=== PATIENT | female | born 1975 | race Caucasian/White ===

== ENCOUNTER 2025-01-17 18:42 | Emergency (ER) | payer BC ==
[~2025-01-17] VITALS: Ht 170.2 cm; Wt 130.2 kg
[2025-01-17 19:58] VITALS: TEMP 98.5
[2025-01-17] MEDS ORDERED: MECLIZINE HCL 25 MG TABLET ONE (20:32)
[2025-01-17] MEDS ORDERED: ACETAMINOPHEN ES 500 MG TABLET ONE (20:32)
[2025-01-17] MEDS: MECLIZINE HCL 25 MG TABLET PO ONE (20:40)
[2025-01-17] MEDS: ACETAMINOPHEN ES 500 MG TABLET PO ONE (20:40)
[2025-01-17 20:43] LABS: PLATELET COUNT (AUTO) 327 K/uL (150-450); RED BLOOD CELL COUNT(AUTO) 5.37 MIL/uL (4.0-5.2); RED CELL DISTRIBUTION WIDTH 16.5 % (11.5-15.0); WHITE BLOOD COUNT (AUTO) 9.1 K/uL (4.3-11.0)
[2025-01-17 20:55] LABS: CALCIUM, SERUM 9.1 mg/dL (8.5-10.1); CREATININE 0.8 mg/dL (0.6-1.3); SODIUM SERUM 139 mmol/L (136-145); UREA NITROGEN, BLOOD 8 mg/dL (7-18)
[2025-01-17 21:08] LABS: ASPARTATE AMINOTRANSFERASE 25 U/L (15-37); NT-PRO BNP 97 pg/mL (0-125); TOTAL PROTEIN, SERUM 7.5 g/dL (6.4-8.2)
[2025-01-17] MEDS: IV NS 0.9% 500 ML BAG IV ONE (21:10)
[2025-01-17] MEDS ORDERED: MECL-159 PO (21:54)
[2025-01-17] MEDS ORDERED: IBUP-1953 PO (21:54)
[2025-01-17] MEDS: LABETALOL HCL (100MG) 100 MG TABLET PO ONE (21:55)
[2025-01-17] MEDS ORDERED: LABETALOL HCL (100MG) 100 MG TABLET ONE (21:57)
[2025-01-17 22:41] VITALS: BP 141/90; O2SAT 97
== END 2025-01-17 22:41 | disposition home or self-care (01) ==
LOC: ER 19:22
DX: R42 Dizziness and giddiness (principal); I10 Essential (primary) hypertension; Z79.899 Other long term (current) drug therapy; Z88.0 Allergy status to penicillin; Z88.2 Allergy status to sulfonamides
CPT/HCPCS: 99285; 70450; 71045; 93005; 85025; 80048; 80076; 36415; 84484; 83880; 82962; 84702; J8597; J7040